=== PATIENT | male | born 1980 ===

== ENCOUNTER 2017-05-20 17:45 | Emergency (ER) | payer OTHER ==
[2017-05-20 17:49] VITALS: BMI 24.1
[2017-05-20 17:53] VITALS: RESP 18; TEMP 98.1; O2SAT 100
[2017-05-20] MEDS ORDERED: Sodium Chloride 0.9% 1,000 ML IV ONE (18:22)
[2017-05-20] MEDS ORDERED: DiphenhydrAMINE 50 mg/ml Inj IVP STA (18:22)
[2017-05-20] MEDS ORDERED: DiphenhydrAMINE 50 mg/ml Inj ONE (18:24)
--- NOTE | 2017-05-20 18:24 | C.PDOC ---
History Of Present Illness 37 yr old male w/o significant PMHx presents to the ER for evaluation of diffuse skin redness associated with itchiness mostly over trunk area gradually developed for past 2 days. Patient admits, similar sx in past " had urticaria before with weather changes". Patient denies chest pain, SOB, throat pain, throat swelling, drooling, dyspnea, wheezing, nausea, vomiting, headache or dizziness. Ambulate to ED for evaluation, not in any apparent distress. Time Seen by Provider: 05/20/17 17:55 Chief Complaint (Nursing): Abnormal Skin Integrity History Per: Patient History/Exam Limitations: no limitations Onset/Duration Of Symptoms: Days Past Medical History Reviewed: Historical Data, Nursing Documentation, Vital Signs Vital Signs: Last Vital Signs Temp 98.1 F 05/20/17 17:50 Pulse 82 05/20/17 19:28 Resp 18 05/20/17 19:28 BP 116/68 05/20/17 19:28 Pulse Ox 100 05/20/17 20:20 Family History: States: No Known Family Hx - Social History Hx Alcohol Use: No Hx Substance Use: No - Immunization History Hx Tetanus Toxoid Vaccination: No Hx Influenza Vaccination: No Hx Pneumococcal Vaccination: No Review Of Systems Except As Marked, All Systems Reviewed And Found Negative. ENT: Negative for: Throat Pain, Throat Swelling Cardiovascular: Negative for: Chest Pain Respiratory: Negative for: Shortness of Breath, Wheezing Gastrointestinal: Negative for: Nausea, Vomiting Skin: Positive for: Other ((+) Diffuse redness and itchy over trunk area.) Neurological: Negative for: Headache, Dizziness Physical Exam - Physical Exam Appears: Non-toxic, No Acute Distress Skin: Warm, Dry, Other ((+) Diffuse urticaria over the anterior chest, abdomen and back. No cellulitis.) Head: Normacephalic Eye(s): bilateral: PERRL Ear(s): Bilateral: Normal Nose: No Flaring, No Discharge Oral Mucosa: Moist, No Drooling Tongue: Normal Appearing, No Swelling Lips: Normal Appearing, No Swelling Throat: No Erythema, No Drooling, Other (Uvula midline, no edema.) Neck: Supple Cardiovascular: Rhythm Regular, No Murmur Respiratory: No Decreased Breath Sounds, No Accessory Muscle Use, No Rales, No Rhonchi, No Stridor, No Wheezing Gastrointestinal/Abdominal: Soft, No Tenderness, No Distention, No Guarding Extremity: Normal ROM, No Pedal Edema, No Swelling Neurological/Psych: Oriented x3, Normal Speech ED Course And Treatment O2 Sat by Pulse Oximetry: 100 (RA) Pulse Ox Interpretation: Normal Progress Note: On re-eavl, pt is afebrile, hemodynamicaly stable. Tolerate po well in ED. PulsEOx 100% RA. ENT: no acute findings uvula midline, no edema. Neck: Supple, (-) JVD. Lungs: CTA B/L, BS equal B/L. Abd: benign. Neuorlogicaly intact. SkinL moderate improvement in urticaria. Pt advised on course of ds, advised to avoid possible allergen. Advised to F/u with PMD, clinic lpn in 2-3 days for re-eval. return to ED if any worsening or new changes. Medical Decision Making Medical Decision Making: PLAN: * Benadryl IVP * Pepcid IVP * Prednisolone IVP * Sodium Chloride IV Disposition Counseled Patient/Family Regarding: Diagnosis, Need For Followup, Rx Given - Disposition Referrals: 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 RETURN TO ED IF ANY WORSENING OR NEW CHANGES. Prescriptions: DiphenhydrAMINE [Benadryl] 25 mg PO BID #10 cap Famotidine [Pepcid] 20 mg PO BID #10 tab Prednisone [Deltasone] 60 mg PO DAILY #9 tablet Instructions: Urticaria (ED) Forms: [employer] (Romansh) Print Language: KOSOVAN - Clinical Impression Clinical Impression: Urticaria - PA / TUFTER / Resident Statement MD/DO has reviewed & agrees with the documentation as recorded. - Scribe Statement The provider has reviewed the documentation as recorded by the Scribe Yolande Price All medical record entries made by the Wiliamibfreda were at my direction and personally dictated by me. I have reviewed the chart and agree that the record accurately reflects my personal performance of the history, physical exam, medical decision making, and the department course for this patient. I have also personally directed, reviewed, and agree with the discharge instructions and disposition.
[2017-05-20] MEDS ORDERED: Sodium Chloride 0.9% 1,000 ML ONE (18:32)
[2017-05-20 19:29] VITALS: BP 116/68; PULSE 82
== END 2017-05-20 20:47 | disposition home or self-care (01) ==
LOC: C.ER 17:45
DX: L50.9 Urticaria, unspecified (principal)
CPT/HCPCS: 96361; 96374; 96375; 99283; J1200; J2930; J7040

== ENCOUNTER 2017-05-29 13:03 | Emergency (ER) | payer SELFPAY ==
[2017-05-29 13:03] VITALS: BMI 24.1
[2017-05-29 13:08] VITALS: BP 115/74; PULSE 87; TEMP 98.1
--- NOTE | 2017-05-29 14:09 | C.PDOC ---
History Of Present Illness 37 year old male presents to the ED c/o itchy red rash all over his body for about a week. Notes he was evaluated by MARGARET 05/20/17 and treated with Benadryl , Prednisone, and pepcid. States he took the medication with minimal relief. No known causes, no new medication, food, or possible allergens. Denies fever, nausea, difficulty breathing, difficulty swallowing, lip swelling, or chest pain. No medication today. Has not followed up. 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: no limitations Onset/Duration Of Symptoms: Days Current Symptoms Are (Timing): Still Present Location Of Injury: Right: Arm, Back, Leg, Thigh, Left: Arm, Back, Leg, Thigh Quality Of Symptoms: Itching Recent travel outside of the [place]: No Additional History Per: Patient Past Medical History Reviewed: Historical Data, Nursing Documentation, Vital Signs Vital Signs: Last Vital Signs Temp 98.1 F 05/29/17 13:06 Pulse 87 05/29/17 13:06 Resp 18 05/29/17 14:24 BP 115/74 05/29/17 13:06 Pulse Ox 100 05/29/17 16:29 - Medical History PMH: No Chronic Diseases Surgical History: No Surg Hx Family History: States: Unknown Family Hx - Social History Hx Alcohol Use: Yes Hx Substance Use: No - Immunization History Hx Tetanus Toxoid Vaccination: No Hx Influenza Vaccination: No Hx Pneumococcal Vaccination: No Review Of Systems Constitutional: Negative for: Fever, Chills Cardiovascular: Negative for: Chest Pain, Palpitations Respiratory: Negative for: Cough, Shortness of Breath Gastrointestinal: Negative for: Nausea, Vomiting, Abdominal Pain Skin: Positive for: Rash Physical Exam - Physical Exam Appears: Non-toxic, No Acute Distress Skin: Rash ((+) dry erythematous macopapular rash concentrated on the flexor folds including elbows, knees, and inguinal area. (+) excoriations.) Head: Atraumatic, Normacephalic Eye(s): bilateral: Normal Inspection, EOMI Nose: Normal, No Discharge Oral Mucosa: Moist Tongue: No Swelling Lips: No Swelling Throat: Normal, No Erythema, No Exudate, No Drooling Neck: Normal, Normal ROM, Supple Chest: Symmetrical Cardiovascular: Rhythm Regular Respiratory: Normal Breath Sounds, No Rales, No Rhonchi, No Wheezing Gastrointestinal/Abdominal: Soft Extremity: Normal ROM, No Calf Tenderness, No Swelling Neurological/Psych: Oriented x3, Normal Speech, Normal Cognition ED Course And Treatment O2 Sat by Pulse Oximetry: 100 (On RA) Pulse Ox Interpretation: Normal Progress Note: Plan: -Benadryl 50 mg PO given. On reassessment, patient is resting comfortable and tolerating PO with no intraoral swelling or difficulty breathing. Patient reports improvement in rash and was instructed to follow up with physician/clinic in 1-2 days or return to ED if symptoms persist or worsen. Case discussed with Dr Roy, agreed upon plan and treatment. Disposition - Disposition Referrals: [facility] [Outside] Disposition: HOME/ ROUTINE Disposition Time: 14:09 Condition: STABLE Additional Instructions: Apply an emollient such as petrolatum or Aquaphor all over the body while wet, to seal in moisture and allow water to be absorbed. Avoid long, hot showers. Take quick, warm showers. Do NOT scratch the area. Follow up with gizzard skin remover in 1-2 days. Return to ER if symptoms persist or worsen. Aplique un emoliente viktoria vaselina o Aquaphor en todo el cuerpo mientras est mojado, para sellar la humedad y permitir que se absorba el agua. Juliane las duchas calientes y largas. [place] duchas calientes y rpidas. NO noy el lyndsay. Lalit un seguimiento con especialista en piel en 1-2 chavez. Regrese a la gordo de emergencias si los sntomas persisten o empeoran. 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 - Scribe Statement The provider has reviewed the documentation as recorded by the Scribe Carmelo Brower All medical record entries made by the Wiliamibfreda were at my direction and personally dictated by me. I have reviewed the chart and agree that the record accurately reflects my personal performance of the history, physical exam, medical decision making, and the department course for this patient. I have also personally directed, reviewed, and agree with the discharge instructions and disposition.
[2017-05-29 14:27] VITALS: RESP 18
[2017-05-29 16:27] VITALS: O2SAT 100
== END 2017-05-29 14:29 | disposition home or self-care (01) ==
LOC: C.ER 13:03
DX: L30.9 Dermatitis, unspecified (principal)